=== PATIENT | female | born 1950 | race Caucasian/White ===

== ENCOUNTER 2018-11-10 08:20 | Observation (INO) | payer MEDICARE, OTHER, SELFPAY ==
[2018-10-28 09:36] VITALS: BMI 36.2
[2018-11-09] VITALS (15 sets, daily range): BP systolic 118–170; BP diastolic 49–83; PULSE 55–77; RESP 11–22; TEMP 36.1–36.6; O2SAT 92–98; BMI 36.2
[2018-11-09] MEDS: LACTATED RINGERS 1,000 ML 42 ML IV (06:36)
--- NOTE | 2018-11-09 07:42 | PM.PREOP ---
Pre-operative Note Interval Note History & Physical reviewed/Exam performed by Physician: Yes Changes to H&P: No
[2018-11-09] MEDS: CEFAZOLIN 2 GM/100 ML FROZ.PIGGY IV (07:55)
--- NOTE | 2018-11-09 08:16 | SUR.OPER ---
Supine on padded OR bed. Pillow under head, arms secured on padded armboards <90 degree abduction. Safety belt across torso. Non-operative leg secured with tape over blanket over lower leg. Operative leg secured in DeMayo/Kishore positioner. Foam padded brace at thigh of operative leg.
[2018-11-09] MEDS: BUPIVACAINE LIPOSOME 266 MG/20 ML VIAL INJ (08:27)
[2018-11-09] MEDS: BUPIVACAINE 0.25% W/ EPI 30 ML VIAL 60 ML INJ (08:27)
[2018-11-09] MEDS: MORPHINE 4 MG/ML INJ IM (08:28)
[2018-11-09] MEDS: TRANEXAMIC ACID 1,000 MG VIAL 2000 MG INJ ×2 (08:31→08:54)
[2018-11-09] MEDS: ACETAMINOPHEN IV 1,000 MG/100 ML VIAL 400 MG IV (08:32)
--- NOTE | 2018-11-09 09:42 | P.OP_ITS ---
Operative Date/Time/Diagnoses Date of procedure: 11/09/18 Time of procedure: 09:10 Pre-op diagnosis: Right knee osteoarthritis Post-op diagnosis: same Procedure & Clinicians Procedure: Right total knee replacement Same procedure as scheduled: Yes Indications: The patient has had progressively worsening right knee pain with radiographic changes consistent with arthritis. Non-operative management has failed and the patient has requested total knee replacement. The risks, benefits and alternatives to surgery were discussed with the patient prior to proceeding. Risks discussed included, but were not limited to, failure to relieve pain, stiffness, infection, nerve damage, deep venous thrombosis, pulmonary embolism, stroke, coma, heart attack, permanent paralysis and , as well as the potential need for eventual revision of the prosthetic. Surgeon: Luis Brown Electronic Industrial Controls Mechanic: Kwasi Schwarz Click Yes if Unassisted: No Anesthesia Type: General, Spinal and Local Operative Notes Findings: Moderately severe patellofemoral and lateral osteoarthritis mild to moderate medial osteoarthritis Closure Type: primary Specimen(s): none sent Prosthetic devices, grafts, tissues, transplants, or devices: Implants used in this procedure were manufactured by the [employer] and included the BCS II Journey total knee replacement with a size 5 Oxinium femoral component, a size 3 right non porous tibial base plate, a 10 mm crosslink polyethylene tibial insert and a 32 mm oval Misa II patellar component. Applied: implant(s) Estimated Blood Loss (mL): 25 Blood products transfused: none Tourniquet time (min): 50 Procedure in detail: The patient was seen in the pre-operative area, where the patient identified the right knee as the operative site and this was marked with my initials. The patient received pre-operative antibiotics, and was taken to the operating room and placed on the operative table in the supine position. After satisfactory anesthesia, a time study statistician out was performed. The right leg was encircled with a tourniquet about the proximal thigh, and the leg was prepared from the toes to the tourniquet with ChloroPrep in the usual fashion and draped through sterile drapes. The leg was elevated and exsanguinated with Eschmark bandage and the tourniquet inflated to 250 mmHg pressure. The knee was approached through an approximately 18 cm incision centered over the patella and carried into the knee through a medial parapatellar arthrotomy. The anterior osteophytes and soft tissues were removed. The rotational landmarks of Gardiner's line and the transepicondylar axis were marked on the femur with electrocautery, and intramedullary guide holes for the femur and tibia were created. The distal femoral cut was made in 6 degrees of valgus using the intramedullary guide at the primary cut setting. The proximal tibial cut was then made using the intramedullary guide, taking 9 mm of bone off the less involved side. The extension gap was checked and the rotation of the femoral component confirmed with the gap balancing system. The anterior, posterior and chamfer cuts were then made. The posterior osteophytes and soft tissues were then removed. The posterior capsule was injected with part of a mixture of 60 ml 0.25% Marcaine mixed with 20 ml Exparel and 4 mg of morphine for post-operative pain control. The remainder of this mixture was injected into the capsule and subcutaneous tissues during cement curing. The tibia was prepared with the rotation set by an extra medullary guide. Trial tibial and femoral components were then placed and the intercondylar notch cut through the femoral trial. Range of motion was 0-135 degrees, with good stability throughout the range. The patella was then cut to accommodate the patellar prosthetic. There was good patellar tracking but mild lateral patellar tilt, so a ?pie crust? lateral release was performed to correct the tilt. The trials were then removed, and the femoral hole plugged with a bone plug. The bone was prepared with pulsatile lavage, and dried with a sponge. Cement was applied and the final prosthetics placed. Excess cement was removed during and after cement curing. After confirming there was no extruded cement posteriorly, the final tibial insert was placed. The knee was copiously irrigated and the tourniquet deflated. Hemostasis was obtained. The capsule was closed with interrupted # 2 polyester suture. The subcutaneous layer was closed with 3-0 Vicryl, and the skin with a running 3-0 V-Lock suture and SteriStrips. An Aquacel Ag dressing was applied and the patient was taken to recovery having tolerated the procedure well. Complications: none Condition: stable Disposition: PACU Plan for aftercare: The patient will be maintained on a standard total knee replacement protocol with weight bearing as tolerated. The patient will receive aspirin and sequential compression devices for DVT prophylaxis. The patient will be discharged home when safe for the home environment.
--- NOTE | 2018-11-09 10:09 | DI.RAD.S_ITS ---
PROCEDURE: XR KNEE RT 1TO2V INDICATIONS: post op total knee TECHNIQUE: 2 view(s) of the knee acquired. COMPARISON: [facility], CR, XR KNEE ARTHRITIC SERIES RT, 07/08/2018, 10:06. [facility], CR, XR KNEE STANDING BILATERAL, 06/24/2017, 7:49. [facility], CR, XR KNEE 3 VIEWS RIGHT, 06/01/2017, 15:28. FINDINGS: Bones: Patient is status post knee joint arthroplasty. Hardware components are in expected positions. Visualized bony structures are intact. Soft tissues: Overlying postoperative changes are noted. IMPRESSION: Right knee arthroplasty with prosthesis in anatomic alignment. Dictated by: Rylie Carson M.D. on 11/09/2018 at 14:53 Approved by: Rylie Carson M.D. on 11/09/2018 at 14:54
[2018-11-09] MEDS: LACTATED RINGERS 1,000 ML 125 ML IV ×2 (10:15→18:29)
--- NOTE | 2018-11-09 10:32 | PC.NURSE ---
Addendum entered by Kirstie Mcknight R.N. 11/09/18 13:07: Denies pain in R knee after being medicated with 5 mg Oxycodone + Tylenol approx 1115. Refreshed ice pack. States no needs at this time. Call light in reach, bed alarm on. Original Note: Post-op: Arrived to room 214 at 1000. Awake but drowsy, oriented X3. Juan wrap and dressing to R knee C/D/I. She is able to wiggle toes on both feet and reports some sensation to BLE's. Strong pulses in BLE's, cap refill <2 sec. Denies pain or discomfort. Ice pack to R knee. No paz, so will monitor for urge to void (CLOTH MEASURER MACHINE reports patient has had issues with urinary retention in the past after spinal anesthesia). C/O slight nausea when arriving to the room, seemed to resolve once she stopped moving. Vitals stable, room air mid 90's. Cont pulse ox in place. IV site L hand WNL. Oriented to room and call light, encouraged to make needs known.
[2018-11-09] MEDS: OXYCODONE IR 5 MG TABLET PO ×2 (11:14→14:58)
[2018-11-09] MEDS: ACETAMINOPHEN 325 MG TABLET 975 MG PO ×3 (11:16→20:27)
--- NOTE | 2018-11-09 14:08 | PT.IIE ---
Current Diagnoses Unilateral primary osteoarthritis, right knee (11/09/18) Surgery Performed Operation Date: 11/09/18 07:45 Actual Procedures p Total Knee Arthroplasty(Right) - Luis Brown MD Surgical History (Last Updated 10/28/18 @ 10:17 by Tia Fuentes RN) Hx of arthroscopic knee surgery (Acute) Hx of arthroscopy of right knee (Acute) Medical History (Last Updated 10/28/18 @ 10:38 by Tia Fuentes RN) Acid reflux (Acute) Arthritis (Acute) Cellulitis (Acute ~07/2018) DVT (deep venous thrombosis) (Acute) Depression (Acute) Edema (Acute ~1996) H/O: hysterectomy (Acute ~2003) HLD (hyperlipidemia) (Acute) HTN (hypertension) (Acute) Leg fracture, right (Acute ~1996) Osteoarthritis (Acute) Reflux esophagitis (Acute) Sleep apnea with use of continuous positive airway pressure (CPAP) (Acute) Tingling (Acute) Physical Therapy Inpatient Evaluation/Re-Eval M1 PT/OT-IP Prior Functional Status Start: 11/09/18 15:12 Freq: NEEDED Status: Active Protocol: Document 11/09/18 14:08 AB (Rec: 11/09/18 15:23 AB [id number]) Medical Review Prior Functional Status Medical History Reviewed Yes Communication able to make needs known Mobility and Gait pt stated that she is independent with all mobilities and ambulation without AD Social History Household Members none Living Arrangements House Number of Floors (Floors) Two Floors Number of Stairs To Enter/Railing? pt stays on main level of the house 6 steps with bilateral wide rails and can only hold on to one rail at a time; stated that she has a ramp but is no up to code and is steep. Home Environment Standard Height Toilet Tub/Shower Home Equipment Front Wheel Walker Straight Cane Employment Status Retired Additional Social History Comment pt stated that her sister will be staying with her to assist her as long as necessary M2 PT-IP Current Condition Start: 11/09/18 15:12 Freq: NEEDED Status: Active Protocol: Document 11/09/18 14:08 AB (Rec: 11/09/18 15:23 AB [id number]) Physical Therapy Current Condition Current Condition Evaluation Date 11/09/18 Treatment Diagnosis s/p R TKA; difficulty in walking Onset Date 11/09/18 Weight Bearing Status Weight Bearing Status Weight Bear as Tolerated M3 PT-IP Subjective Start: 11/09/18 15:12 Freq: NEEDED Status: Active Protocol: Document 11/09/18 14:08 AB (Rec: 11/09/18 15:23 AB [id number]) Subjective Physical Therapy Visit Type Type Initial Evaluation Visit Start Time 14:08 Visit Stop Time 14:55 Total Visit Minutes 47 Number of NUTRITION MANAGER Visits 0 Physical Therapy Visit Comments Patient Comments pt agreeable to do PT Therapy Pain Assessment Pain When Pain Assessed At Rest Pain Present Pain Present Pain Reported Location Right Knee Intensity 3 Scale Used Numeric (1 - 10) Pain Behaviors Guarding Pain Management Techniques Apply Cold Timing of Activity with Medications M4 PT-IP Mobility and Gait Start: 11/09/18 15:12 Freq: NEEDED Status: Active Protocol: Document 11/09/18 14:08 AB (Rec: 11/09/18 15:23 AB [id number]) PT-Bed Mobility Assessment Supine to Sit Supine to Sit Standby Assistance Scooting Scooting to Edge of Bed Standby Assistance PT-Transfer Assessment Sit to and From Stand Sit to and from Stand Contact Guard Assistance 1 Person Assistance Use of Upper Extremities Equipment Transfer Assistive Device Gait Belt Front Wheeled Walker Orthotic/Prosthetic Devices or Brace: No Transfers Transfer Destination Toilet Transfer Technique pt ambulated using FWW Transfer Ability Level of Assist Minimal Assistance Comments Mobility Comments pt requested to use the toilet . pt ambulated using FWW min A and cues. pt was able to complete sit to stand from the toilet using grab bars min A and cues and ambulated towards the chair. pt stated that she is still numb on her buttocks and R foot. positioned pt on the chair. ice pack provided. Nurse in room with pt. Gait Assessment Gait Gait Assistance Required: Minimum Assistance Distance (Feet) 12 Able to Maintain Weight Bearing Status Yes During Gait Assistive Devices Assistive Device Gait Belt Front Wheeled Walker Gait Deviations General Gait Pattern Antalgic Decreased Stride Length Decreased Feet Clearance Factors Limiting Gait Function Factors Limiting Gait Function Decreased Activity Tolerance Decreased Sensation Decreased Strength Limited Range of Motion Pain Poor Balance PT-Balance Assessment Sitting Balance and Reactions Static Sitting Balance Ability Good Dynamic Sitting Balance Ability Good Standing Balance and Reactions Static Standing Balance Ability Fair Dynamic Standing Balance Ability Fair Device Used FWW M5 PT-IP Objective Assessments Start: 11/09/18 15:12 Freq: NEEDED Status: Active Protocol: Document 11/09/18 14:08 AB (Rec: 11/09/18 15:23 AB [id number]) Orientation Orientation/Cognition Level of Alertness Alert Orientation Name Age Birthday Month Date Year Day of Week Place Situation Language Function Ability No Deficits Noted Safety Awareness Understands Safety Issues Memory Description No Deficits Noted Gross Range of Motion Lower Extremity ROM Assessment Right Impaired Impairments R knee flexion: ~ 40 deg Strength Lower Extremity Strength Assessment Right Impaired Knee 3+/5 Coordination Assessment Gross Coordination Gross Coordination WNL Sensation Assessment Sensation Gross Sensation Right LE Impaired Proprioception (Position) Impaired Sensation Description Numbness Muscle Tone Muscle Tone WNL Yes M6 PT-IP Treatment Start: 11/09/18 15:12 Freq: NEEDED Status: Active Protocol: Document 11/09/18 14:08 AB (Rec: 11/09/18 15:23 AB [id number]) Physical Therapy Treatment Exercises Exercises Quad Sets Heel Slides Education Education Provided Precautions Weight Bearing Status Post-Op Packet Safety M7 PT-IP Assessment and Plan Start: 11/09/18 15:12 Freq: NEEDED Status: Active Protocol: Document 11/09/18 14:08 AB (Rec: 11/09/18 15:23 AB [id number]) PT Summary Assessment and Plan Potential Rehabilitation Potential Good Status of Condition at Evaluation Stable Summary Impairments Pain ROM Strength Balance Coordination Sensation Tone Cognition Bed Mobility Transfers Gait Activity Tolerance Assessment Summary pt requiring min A with mobility and will likely improve during hospital stay. pt plans to go home and her sister will assist her. will complete stair climbing training prior to d/c. Goals Bed Mobility Goal Independent Transfer Goal Standby Assistance Front Wheeled Walker Gait Goal Standby Assistance Front Wheel Walker Gait Distance 150 Other Goals up/down 6 steps using one rail SBA Days to Meet Goals 3 Frequency of Treatment Frequency Of Treatment Twice a Day Treatment Plan Physical Therapy Treatment Plan Bed Mobility Training Transfer Training Gait Training Therapeutic Exercise Balance Retraining Post Op Education Discharge Planning Hot or Cold Pack Neuromuscular Re-ed Coordination Retraining Manual Therapy Recommendations To Nursing Amount of Assist Needed 1 Person Assist Discharge Recommendations PT Discharge Recommendations Home with Assistance Outpatient PT
[2018-11-09] MEDS: ASPIRIN EC 81 MG TABLET PO (20:27)
[2018-11-09] MEDS: DOCUSATE 100 MG CAPSULE PO (20:27)
--- NOTE | 2018-11-09 23:41 | PC.NURSE ---
9068 Pt. ambulating in the hallway, did not C/O pain will cont. POC & monitor.
[2018-11-10] MEDS: OXYCODONE IR 5 MG TABLET PO ×4 (02:16→13:15)
[2018-11-10] MEDS: hydrOXYzine pamoate 25 MG CAPSULE PO (02:16)
[2018-11-10] MEDS: LACTATED RINGERS 1,000 ML 125 ML IV (02:23)
[2018-11-10 05:44] VITALS: BP 121/59; PULSE 62; RESP 17; TEMP 36.3; O2SAT 98
[2018-11-10 06:11] LABS: Hematocrit 38.8 % (36-46); Hemoglobin 13.2 g/dL (12.0-16.0)
--- NOTE | 2018-11-10 07:23 | P.DS_ITS ---
History of Present Illness Date Patient Seen: 11/10/18 Time Patient Seen: 07:21 Chief complaint: [id number] Right Total Knee Arthroplasty Narrative: The history and physical are contained in the chart in a previously completed note. Please refer to that note for this information. Discharge Providers Date of admission: 11/09/18 06:02 Discharge Date: 11/10/18 Primary care physician: Stephan Mendoza MD Consults: 11/09/18 10:09 Consult to Discharge Planning Routine Comment: Consult to Physical Therapy Evaluate & Treat Comment: Physician Instructions: postop TKA protocol Discharge provider: Luis Brown MD Summary Discharge Diagnosis: 1. Right knee osteoarthritis Hospital Course: The patient was admitted to the hospital and taken directly to the operating room on November 09, 2018. She underwent a right total knee replacement without difficulty. On postoperative day 1 she was comfortable and stable and it was thought she would be able to go home after physical therapy. Status at Discharge Cognitive/behavioral status at discharge: oriented Functional status at discharge: uses cane/walker Overall status at discharge: patient is progressing back to baseline Time Spent with Patient Less than 30 minutes Exam Vital Signs (past 8 hours): - 11/09/18 23:30 11/10/18 05:44 Temperature 97.7 F 97.4 F L Pulse Rate 71 62 Respiratory Rate 18 17 Blood Pressure 143/70 H 121/59 L Pulse Oximetry 96 98 Oxygen Delivery Method Room Air Oxygen Flow Rate 0 Narrative Exam Narrative: Right knee wound is dressed with no drainage on the bandage. Calf is soft. Light touch and motion are intact in the right lower extremity. Objective Labs Result Diagrams: 11/10/18 05:33 Labs: Laboratory Results - last 24 hr 11/10/18 05:33 Hgb 13.2 Hct 38.8 Discharge Plan Discharge Plan Patient Disposition: Home Discharge Med Rec/Prescriptions Prescriptions: New acetaminophen 325 mg Tablet 975 mg PO TID 30 Days Qty: 270 RF: 0 aspirin 81 mg Tablet,Delayed Release (Dr/Ec) 81 mg PO BID 42 Days Qty: 84 RF: 0 oxycodone 5 mg Tablet 5 mg PO Q3HR PRN (Reason: Pain, Moderate (4-6)) Qty: 40 RF: 0 hydroxyzine pamoate 25 mg Capsule 25 mg PO Q6HR PRN (Reason: Nausea) Qty: 40 RF: 0 Continued metoprolol succinate 50 mg Tablet Extended Release 24 Hr 50 mg PO DAILY RF: 0 hydrochlorothiazide 25 mg Tablet 25 mg PO DAILY RF: 0 cholecalciferol (vitamin D3) [Vitamin D3] 5,000 unit Tablet 5,000 unit PO DAILY RF: 0 pantoprazole 20 mg Tablet,Delayed Release (Dr/Ec) 20 mg PO DAILY RF: 0 Discontinued aspirin 81 mg Tablet,Delayed Release (Dr/Ec) 81 mg PO DAILY RF: 0 Follow up/Referrals: Luis Brown MD [Physician] - 3-5 Days Stephan Mendoza MD [Primary Care Provider] - Provider Discharge Instructions Diet: Diet as Tolerated and Regular Activity: You may bear weight as tolerated on the right leg. Cold/Heat Therapy: Apply ice as needed for 15 minutes every hour for pain. Skin/Wound/Dressing Care Report to your healthcare provider any signs of infection, such as:: chills, fever, night sweats, increased pain, unusual drainage and unusual redness Dressing: Remove the Juan wrap 3 days after surgery. Leave the deeper dressing i n place. You may shower with the deeper dressing in place. If the deeper dressing becomes saturated with either water or blood please call the office to have it changed. Visit Report/Discharge Packet Instructions: DI for Knee Replacement Stand Alone Forms: Surgery Discharge Discharge Data Primary Care Provider: Stephan Mendoza Attending Provider: Luis Brown Admit Date/Time: 11/09/18 06:02 Quality VTE Deep Vein Thrombosis/Pulmonary Embolism Present on Admission: No
[2018-11-10 07:53] VITALS: BP 141/73; PULSE 60; RESP 18; TEMP 36.8; O2SAT 97
--- NOTE | 2018-11-10 08:18 | PC.NURSE ---
Addendum entered by Maylin Cool R.N. 11/10/18 15:03: DC - when pt sister arrived, reviewed dc instructions, meds provided previously from [facility], belongings gathered, including cell phone, strong nitric operator, tablet, own cpap and fww, tsf to wc with belongings and escorted to family car. Addendum entered by Maylin Cool R.N. 11/10/18 13:27: PAIN - discussion pain medication at lunch, pt req to wait until after 1300 prior to transfer home, given 5mg po oxycodone 1315. Addendum entered by Maylin Cool R.N. 11/10/18 10:55: MS/PAIN - Up with PT, using fww, ambul hallway and then ret bed, gait steady, cleared by PT for dc home. Original Note: AM NOTE - pt is alert, sitting up in chair prior to breakfast, states earlier pain medication providing adequate relief, 3-4 on scale 0/10 r knee, ra 98, hr 55. 2+ pedal edema r ankle w/hx old fx, some discomfort r heel, removed sock and no redness or opening noted, feet dangle position, enc elev and raised foot rest and pillow support provided, juan carlos wrap over aquacell cdi, ice pack to r knee.
[2018-11-10] MEDS: ACETAMINOPHEN 325 MG TABLET 975 MG PO ×2 (09:21→14:33)
[2018-11-10] MEDS: PANTOPRAZOLE 20 MG TABLET PO (09:22)
[2018-11-10] MEDS: ASPIRIN EC 81 MG TABLET PO (09:22)
[2018-11-10] MEDS: POLYETHYLENE GLYCOL 3350 17 GM POWD.PACK PO (09:22)
[2018-11-10] MEDS: DOCUSATE 100 MG CAPSULE PO (09:22)
[2018-11-10] MEDS: MELOXICAM 7.5 MG TABLET 15 MG PO (09:22)
[2018-11-10] MEDS: METOPROLOL ER 50 MG TABLET PO (09:23)
[2018-11-10] MEDS: hydroCHLOROthiazide 25 MG TABLET PO (09:24)
--- NOTE | 2018-11-10 10:50 | PT.IPTN ---
Current Diagnoses Unilateral primary osteoarthritis, right knee (11/09/18) Surgery Performed Operation Date: 11/09/18 07:45 Actual Procedures p Total Knee Arthroplasty(Right) - Luis Brown MD Physical Therapy Treatment Note M2 PT-IP Current Condition Start: 11/09/18 15:12 Freq: NEEDED Status: Active Protocol: Document 11/09/18 14:08 AB (Rec: 11/09/18 15:23 AB [id number]) Physical Therapy Current Condition Current Condition Evaluation Date 11/09/18 Treatment Diagnosis s/p R TKA; difficulty in walking Onset Date 11/09/18 Weight Bearing Status Weight Bearing Status Weight Bear as Tolerated M3 PT-IP Subjective Start: 11/09/18 15:12 Freq: NEEDED Status: Active Protocol: Document 11/10/18 10:50 GGD (Rec: 11/10/18 11:58 GGD [email or web address]) Subjective Physical Therapy Visit Type Type Treatment Note Visit Start Time 10:25 Visit Stop Time 10:50 Total Visit Minutes 25 Number of MANAGER EMPLOYEE RELATIONS Visits 1 Physical Therapy Visit Comments Patient Comments Pt states she needs to use the bathroom. Therapy Pain Assessment Pain When Pain Assessed At Rest Pain Present Pain Present Pain Reported Location Right Knee Intensity 4 M4 PT-IP Mobility and Gait Start: 11/09/18 15:12 Freq: NEEDED Status: Active Protocol: Document 11/10/18 10:50 GGD (Rec: 11/10/18 11:58 GGD [email or web address]) PT-Bed Mobility Assessment Supine to Sit Supine to Sit Standby Assistance Sit to Supine Sit to Supine Standby Assistance Scooting Scooting to Edge of Bed Standby Assistance PT-Transfer Assessment Sit to and From Stand Sit to and from Stand Standby Assistance Use of Upper Extremities Equipment Transfer Assistive Device Gait Belt Front Wheeled Walker Orthotic/Prosthetic Devices or Brace: No Transfers Transfer Destination Bed Toilet Transfer Ability Level of Assist Standby Assistance Contact Guard Assistance Gait Assessment Gait Gait Assistance Required: Standby Assistance Contact Guard Assist Distance (Feet) 230 Able to Maintain Weight Bearing Status Yes During Gait Assistive Devices Assistive Device Gait Belt Front Wheeled Walker Gait Deviations General Gait Pattern Antalgic Decreased Stride Length Decreased Feet Clearance Factors Limiting Gait Function Factors Limiting Gait Function Decreased Activity Tolerance Decreased Sensation Decreased Strength Limited Range of Motion Pain Poor Balance Stair Climbing Assessment Evaluation Level of Assist On Stairs Standby Assistance Contact Guard Assistance Devices Stair Climbing Assistive Devices Left Railing Technique/Endurance Stair Climbing Direction Ascend and Descend Stair Climbing Technique Step to Step Number of Steps Climbed 3 Stair Climbing Set # Repetitions (reps) 2 M5 PT-IP Objective Assessments Start: 11/09/18 15:12 Freq: NEEDED Status: Active Protocol: Document 11/09/18 14:08 AB (Rec: 11/09/18 15:23 AB [id number]) Orientation Orientation/Cognition Level of Alertness Alert Orientation Name Age Birthday Month Date Year Day of Week Place Situation Language Function Ability No Deficits Noted Safety Awareness Understands Safety Issues Memory Description No Deficits Noted Gross Range of Motion Lower Extremity ROM Assessment Right Impaired Impairments R knee flexion: ~ 40 deg Strength Lower Extremity Strength Assessment Right Impaired Knee 3+/5 Coordination Assessment Gross Coordination Gross Coordination WNL Sensation Assessment Sensation Gross Sensation Right LE Impaired Proprioception (Position) Impaired Sensation Description Numbness Muscle Tone Muscle Tone WNL Yes M6 PT-IP Treatment Start: 11/09/18 15:12 Freq: NEEDED Status: Active Protocol: Document 11/10/18 10:50 GGD (Rec: 11/10/18 11:58 GGD [email or web address]) Physical Therapy Treatment Exercises Exercises Ankle Pumps Quad Sets Heel Slides Seated Knee Flexion/Extension M7 PT-IP Assessment and Plan Start: 11/09/18 15:12 Freq: NEEDED Status: Active Protocol: Document 11/10/18 10:50 GGD (Rec: 11/10/18 11:58 GGD [email or web address]) PT Summary Assessment and Plan Summary Assessment Summary Pt imrpoving with mobility. She needed decrease in assist. She was safe and stable with stair mobility. Pt safe for home d/C when medically stable . Frequency of Treatment Frequency Of Treatment Twice a Day Treatment Plan Physical Therapy Treatment Plan Bed Mobility Training Transfer Training Gait Training Therapeutic Exercise Balance Retraining Post Op Education Discharge Planning Hot or Cold Pack Neuromuscular Re-ed Coordination Retraining Manual Therapy Recommendations To Nursing Amount of Assist Needed 1 Person Assist Discharge Recommendations PT Discharge Recommendations Home with Assistance Outpatient PT
--- NOTE | 2018-11-10 11:14 | CM.DANOTE ---
DCP: Case received, EMR reviewed and met with patient. Introduced self and role. Was able to obtain baseline health history and living situation from patient. DCP template assessment completed with information currently available. Patient is a 68 year old female who admitted yesterday morning to the care of the orthopedic team. PCP: Dr. Mendoza. Payer: confirmed: Medicare/[employer]. Patient came to the hospital for a surgical procedure. She had R. Total Knee Arthroplasty. Met with patient in her room. Alert and oriented. She stated that she had just worked with physical therapy. She resides in [place], and her has dementia and lives at [facility]. She stated that he has been there since approximately March. She mentioned that her sister, Marybel, will be staying with her, and she already has outpatient P.T. set up. Patient mentioned that she has 6 stairs to get into her home, and will be staying downstairs. P: Patient should be able to go home when she is stable and cleared by P.T. Rosalia Carroll RN/Plant Engineer
== END 2018-11-10 14:30 | disposition home or self-care (01) ==
LOC: AC 13:41 → OR 15:41
PROVIDERS: Admitting Provider Orthopaedic Surgery; PCP Family Medicine; Visit Provider Orthopaedic Surgery
PROC: 0SRC0JZ Replacement of Right Knee Joint with Synthetic Substitute, Open Approach (ICD-10-PCS; CPT 27447; principal; 2018-11-09 07:45)
DX: M17.11 Unilateral primary osteoarthritis, right knee (principal); M11.261 Other chondrocalcinosis, right knee; G47.33 Obstructive sleep apnea (adult) (pediatric); I10 Essential (primary) hypertension; E66.9 Obesity, unspecified
CPT/HCPCS: 27447; 36415; 73560; 85014; 85018; 94762; 97116; 97161; 97530; C1776; G0378; C9290; J0131; J0690; J1100; J2250; J2270; J2405; J2704; J3010